=== PATIENT | female | born 1965 | race Hispanic/Latino ===

== ENCOUNTER 2022-06-10 17:18 | Observation (INO) | payer SELFPAY ==
[2022-06-10] MEDS ORDERED: FUROSEMIDE 40 MG/4 ML INJ IV ONE (19:26)
--- NOTE | 2022-06-10 19:54 | XRay Report ---
CHEST 1 VIEW INDICATION: Dyspnea. COMPARISON: None FINDINGS: SUPPORT DEVICES: None. HEART: Within normal limits. LUNGS/PLEURA: Moderate patchy right greater than left basilar airspace disease. No effusion. ADDITIONAL FINDINGS: None. IMPRESSION: 1. Lung findings as above. Signer Name: Kishore Nieves MD Signed: 06/10/2022 7:50 PM Workstation Name: [id number]
[2022-06-10 20:05] LABS: Hematocrit 36.3 % (30.3-42.9); Hemoglobin 12.9 gm/dl (10.1-14.3); Mean Corpuscular HGB Conc 35 % (30-34); Mean Corpuscular Volume 110 fl (79-97); Platelet Count 223 K/mm3 (140-440); Red Blood Count 3.31 M/mm3 (3.65-5.03); Red Cell Distribution Width 15.9 % (13.2-15.2)
[2022-06-10 20:32] LABS: Alanine Aminotransferase 40 units/L (7-56); Albumin 3.9 g/dL (3.9-5); Blood Urea Nitrogen 12 mg/dL (7-17); Calcium 8.5 mg/dL (8.4-10.2); Hemolysis Index 8
[2022-06-10 20:41] LABS: BUN/Creatinine Ratio 30
[2022-06-10 21:08] LABS: Basophils % (Manual) 0 % (0.0-1.8); Eosinophils % (Manual) 0 % (0.0-4.3); Platelet Estimate Consistent w Auto; Total Cells Counted 100
--- NOTE | 2022-06-10 22:54 | Cat Scan Report ---
CTA CHEST WITH CONTRAST INDICATION / CLINICAL INFORMATION: Chest pain shortness of breath 100ml of [id number]. TECHNIQUE: Axial CT images were obtained through the chest after injection of IV contrast. 3 plane TX P and/or 3D reconstructions were produced. All CT scans at this location are performed using CT dose reduction for ALARA by means of automated exposure control. COMPARISON: Chest x-ray 06/10/2022 FINDINGS: VASCULAR FINDINGS: PULMONARY ARTERY: Pulmonary artery is normal in size. Segmental and subsegmental branch vessels of th e upper and lower lobes of blurred by motion and were not well opacified. Excluding these segments, t here is no evidence of pulmonary artery embolus.. THORACIC AORTA: No significant abnormality. CORONARY ARTERY CALCIFICATION: Absent -- None. NONVASCULAR FINDINGS: LOWER NECK: Soft tissues and musculature of the lower neck demonstrate no significant abnormality. Th e thyroid demonstrates no significant abnormality. HEART: No significant abnormality. MEDIASTINUM / LOBITO: No significant abnormality. ESOPHAGUS: No significant abnormality. LYMPH NODES: No adenopathy within the axilla, mediastinum, or lobito. LUNGS: Lungs are moderately blurred by motion. No focal consolidation. PLEURA: No pleural effusion. No pneumothorax. THORACIC SOFT TISSUES: No significant abnormality of the chest wall or upper thoracic musculature. BONES: Bilateral remote rib fractures. No acute osseous findings. ADDITIONAL CHEST FINDINGS: None. UPPER ABDOMEN: No significant abnormality. IMPRESSION: 1. No CT evidence for pulmonary embolism. 2. No acute findings. Signer Name: Asim Dawson II, MD Signed: 06/10/2022 10:49 PM Workstation Name: [id number]
[2022-06-10] MEDS ORDERED: ALBUTEROL 2.5 MG/3 ML NEBU IH ONE (22:58)
[2022-06-10] MEDS ORDERED: methylPREDNISolone Sod Succinate 125 MG/2 ML INJ IV ONE (22:59)
[2022-06-10] MEDS ORDERED: MORPHINE 4 MG/1 ML INJ IV ONE (23:08)
--- NOTE | 2022-06-10 23:11 | Emergency Department Report ---
ED Shortness of Breath HPI - General Chief Complaint: Dyspnea/Respdistress Stated Complaint: BEV Time Seen by Provider: 06/10/22 18:49 Source: patient, EMS Mode of arrival: Stretcher Limitations: No Limitations - History of Present Illness Initial Comments: Patient is a 56-year-old female with history of COPD, CHF and PE presenting to ED with complaint of worsening shortness of breath over the past several days. States she was on home oxygen in the past and was able to be weaned off. She also reports being out of her Eliquis. - Related Data Allergies Allergy/AdvReac Type Severity Reaction Status Date / Time No Known Allergies Allergy Unverified 06/10/22 17:29 ED Review of Systems ROS: Stated complaint: BEV Other details as noted in HPI Constitutional: denies: chills, fever Respiratory: shortness of breath Cardiovascular: denies: chest pain, palpitations Gastrointestinal: denies: abdominal pain, nausea, diarrhea Musculoskeletal: back pain (Chronic) Skin: denies: rash, lesions Neurological: denies: headache, weakness, paresthesias Psychiatric: denies: anxiety, depression Hematological/Lymphatic: denies: easy bleeding, easy bruising ED Physical Exam - General Limitations: No Limitations General appearance: alert, in no apparent distress, obese - Head Head exam: Present: atraumatic, normocephalic - Neck Neck exam: Present: normal inspection - Respiratory Respiratory exam: Present: respiratory distress, wheezes, other (Intermittent coughing) - Cardiovascular Cardiovascular Exam: Present: regular rate, normal rhythm, normal heart sounds - GI/Abdominal GI/Abdominal exam: Present: soft. Absent: distended, tenderness - Rectal Rectal exam: Present: deferred - Neurological Exam Neurological exam: Present: alert, oriented X3 - Psychiatric Psychiatric exam: Present: normal affect, normal mood - Skin Skin exam: Present: warm, dry, intact, normal color ED Course Vital Signs 06/10/22 06/10/22 06/10/22 19:53 20:01 20:15 Pulse Rate 90 99 H 109 H Respiratory 25 H 21 32 H Rate Blood Pressure 159/89 159/89 O2 Sat by Pulse 96 95 94 Oximetry 06/10/22 06/10/22 06/10/22 20:30 20:46 21:00 Pulse Rate 102 H 108 H 89 Respiratory 19 27 H 26 H Rate Blood Pressure 159/89 159/89 O2 Sat by Pulse 98 97 Oximetry 06/10/22 21:16 Pulse Rate 88 Respiratory 23 Rate Blood Pressure 159/89 O2 Sat by Pulse 97 Oximetry ED Medical Decision Making - Lab Data Result diagrams: 06/10/22 19:49 06/10/22 19:49 - Medical Decision Making Chest x-ray shows bibasilar patchiness right greater than left. CTA chest negative for PE or acute process. Troponin undetectable. BNP 1267. Patient given IV Lasix along with IV Solu-Medrol and albuterol nebs. Suspect likely COPD exacerbation. ABG pending. Will admit to hospitalist for further management. Critical care attestation.: If time is entered above; I have spent that time in minutes in the direct care of this critically ill patient, excluding procedure time. ED Disposition Clinical Impression: COPD exacerbation Disposition: ADMITTED INPATIENT Is pt being admited?: Yes Condition: Stable Instructions: Chronic Obstructive Pulmonary Disease (ED)
[2022-06-11] MEDS ORDERED: ACETAMINOPHEN 325 MG TAB PO PRN (00:19)
[2022-06-11] MEDS ORDERED: MORPHINE 2 MG/1 ML INJ IV PRN (00:19)
[2022-06-11] MEDS ORDERED: MORPHINE 4 MG/1 ML INJ IV PRN (00:19)
[2022-06-11] MEDS ORDERED: ONDANSETRON 4 MG/2 ML INJ IV PRN (00:19)
[2022-06-11] MEDS ORDERED: MAGNESIUM HYDROXIDE (MOM) ORAL LIQD UDC PO PRN (00:19)
--- NOTE | 2022-06-11 00:53 | History and Physical Report ---
History of Present Illness Date of examination: 06/11/22 Date of admission: 06/11/22 00:20 Chief complaint: Shortness of breath History of present illness: 56-year-old female with known history of COPD, CHF and also history of pulmonary embolism presenting the emergency room today complaining of shortness of breath. Patient denies any chest pain. Patient has also been on oxygen as at home in the past. She denies any sick contacts and no recent travel. Denies any contact with anyone with COVID-19. Patient denies any fever or chills. No nausea vomiting and no abdominal pain. Upon arrival in the emergency room today patient was found to be wheezing and wa s started on nebulizing treatments. Work-up in the emergency room today, Finding was that of BNP of 1267. Chest x-ray shows moderate patchy right greater than left basilar airspace disease. Patient being admitted for acute dyspnea possibly secondary to COPD versus CHF exacerbation. Past History Past Medical History: COPD, heart failure, pulmonary embolism Past Surgical History: No surgical history Social history: smoking (Current daily smoker) Family history: no significant family history Medications and Allergies Allergies Allergy/AdvReac Type Severity Reaction Status Date / Time No Known Allergies Allergy Verified 06/11/22 00:26 Active Meds: Active Medications Acetaminophen (Acetaminophen 325 Mg Tab) 650 mg PO Q4H PRN PRN Reason: Pain MILD(1-3)/Fever >100.5/GUERRIER Albuterol/Ipratropium (Ipratropium/Albuterol Sulfate 3 Ml Ampul.Neb) 1 ampul IH Q6HRT [facility] Furosemide (Furosemide 40 Mg/4 Ml Inj) 40 mg IV BID@0600,1800 [facility] Magnesium Hydroxide (Magnesium Hydroxide (Mom) Oral Liqd Udc) 30 ml PO Q4H PRN PRN Reason: Constipation Methylprednisolone Sodium Succinate (Methylprednisolone Sod Succinate 40 Mg/1 Ml Inj) 40 mg IV Q8HR [facility] Morphine Sulfate (Morphine 2 Mg/1 Ml Inj) 2 mg IV Q4H PRN PRN Reason: Pain, Moderate (4-6) Morphine Sulfate (Morphine 4 Mg/1 Ml Inj) 4 mg IV Q4H PRN PRN Reason: Pain , Severe (7-10) Ondansetron HCl (Ondansetron 4 Mg/2 Ml Inj) 4 mg IV Q8H PRN PRN Reason: Nausea And Vomiting Sodium Chloride (Sodium Chloride 0.9% 10 Ml Flush Syringe) 10 ml IV BID KAE Sodium Chloride (Sodium Chloride 0.9% 10 Ml Flush Syringe) 10 ml IV PRN PRN PRN Reason: LINE FLUSH Review of Systems Constitutional: no fever, no chills Ears, nose, mouth and throat: no nasal congestion, no sore throat Cardiovascular: no chest pain, no palpitations Respiratory: shortness of breath, no cough Gastrointestinal: no abdominal pain, no nausea, no vomiting, no diarrhea Genitourinary Female: no pelvic pain, no flank pain, no dysuria Musculoskeletal: no neck pain, no low back pain Integumentary: no rash, no pruritis Neurological: no headaches, no confusion Psychiatric: no anxiety, no depression Endocrine: no polyphagia, no polydipsia, no polyuria, no nocturia Exam - Constitutional Vitals: Temp Pulse Resp BP Pulse Ox 90 20 140/80 97 06/11/22 00:30 06/11/22 00:30 06/11/22 00:30 06/11/22 00:30 General appearance: Present: no acute distress, well-nourished - EENT Eyes: Present: PERRL, EOM intact. Absent: scleral icterus ENT: hearing intact, clear oral mucosa, dentition normal - Neck Neck: Present: supple, normal ROM - Respiratory Respiratory effort: normal Respiratory: bilateral: wheezing - Cardiovascular Rhythm: regular Heart Sounds: Present: S1 & S2. Absent: gallop, systolic murmur, diastolic murmur, rub, click - Extremities Extremities: no ischemia, normal color, Full ROM Extremity abnormal: edema (1+ bilateral lower extremity edema) Peripheral Pulses: within normal limits - Abdominal General gastrointestinal: Present: soft, non-tender, non-distended, normal bowel sounds. Absent: mass - Integumentary Integumentary: Present: clear, warm, dry. Absent: rash - Musculoskeletal Musculoskeletal: strength equal bilaterally - Psychiatric Psychiatric: appropriate mood/affect, intact judgment & insight, memory intact, cooperative - Neurologic Neurologic: CNII-XII intact, no focal deficits, moves all extremities HEART Score - HEART Score Troponin: Troponin T < 0.010 ng/mL (0.00-0.029) 06/10/22 19:49 Results - Labs CBC & Chem 7: 06/10/22 19:49 06/10/22 19:49 Labs: Abnormal lab results 06/10/22 06/10/22 06/10/22 Range/Units 19:49 19:49 19:49 RBC 3.31 L (3.65-5.03) M/mm3 MCV 110 H (79-97) fl MCH 39 H (28-32) pg MCHC 35 H (30-34) % RDW 15.9 H (13.2-15.2) % Seg Neuts % (Manual) 97.0 H (40.0-70.0) % Lymphocytes % (Manual) 2.0 L (13.4-35.0) % Seg Neutrophils # Man 7.8 H (1.8-7.7) K/mm3 Lymphocytes # (Manual) 0.2 L (1.2-5.4) K/mm3 Potassium 3.5 L (3.6-5.0) mmol/L Creatinine 0.4 L (0.6-1.2) mg/dL Glucose 160 H (65-100) mg/dL AST 46 H (5-40) units/L NT-Pro-B Natriuret Pep 1267 H (0-900) pg/mL Assessment and Plan Assessment: 1. Acute dyspnea -possibly secondary to COPD exacerbation versus CHF 2. Tobacco abuse Plan: 1. Patient admitted and placed on nebulizing treatments and IV steroid. 2. Patient also placed on diuretics. We will monitor input and output and also monitor daily weight. 3. Patient was scheduled for echocardiogram. 4. Keep O2 saturation greater equal to 92%. 5. We will resume routine home medications. DVT prophylaxis: Subcutaneous heparin CODE STATUS: Full code
[2022-06-11] MEDS: IPRATROPIUM/ALBUTEROL SULFATE 3 ML AMPUL.NEB IH SCH ×3 (04:38→14:19)
[2022-06-11] MEDS ORDERED: FUROSEMIDE 40 MG/4 ML INJ IV SCH (06:00)
[2022-06-11] MEDS: methylPREDNISolone Sod Succinate 40 MG/1 ML INJ IV SCH ×2 (06:28→12:59)
--- NOTE | 2022-06-11 12:13 | Consultation ---
History of Present Illness Consult date: 06/11/22 Requesting physician: YAEL DA SILVA Consult reason: congestive heart failure History of present illness: Patient is a 56-year-old female visiting from [place] with a reported past medical history of COPD(previously on home O2 but has been weaned off she states) and PE who reports not currently on anticoagulation who presented to the ED with complaint of shortness of breath x2 days. She also reports cough and wheezing during this time. Patient states that she feels her COPD is acting up and came to the hospital due to her shortness of breath. At time of interview patient reports feeling significantly better. In the ED patient was found to have elevated BNP and CXR showed moderate patchy basilar airspace disease right greater than left. Patient denies chest pain, nausea, vomiting, diaphoresis, orthopnea. Patient is previously unknown to our practice. Cardiology is consulted for CHF Past History Past Medical History: COPD, hypertension, pulmonary embolism Past Surgical History: cholecystectomy, tonsillectomy Social history: smoking (Current daily smoker) Family history: no significant family history Medications and Allergies Allergies Allergy/AdvReac Type Severity Reaction Status Date / Time No Known Allergies Allergy Verified 06/11/22 10:28 Home Medications Medication Instructions Recorded Confirmed Last Taken Type ALBUTEROL NEB's [Proventil 0.083% 2.5 mg IH Q4H PRN 06/11/22 06/11/22 Unknown History NEBS] Albuterol Mdi (or & Nicu Only) 2 puff IH QID PRN 06/11/22 06/11/22 Unknown History [ProAir HFA Inhaler] Apixaban [Eliquis] 5 mg PO Q12H 06/11/22 06/11/22 Unknown History oxyCODONE [roxiCODONE] 10 mg PO Q6HR PRN 06/11/22 06/11/22 Unknown History Active Meds: Active Medications Acetaminophen (Acetaminophen 325 Mg Tab) 650 mg PO Q4H PRN PRN Reason: Pain MILD(1-3)/Fever >100.5/GUERRIER Albuterol/Ipratropium (Ipratropium/Albuterol Sulfate 3 Ml Ampul.Neb) 1 ampul IH Q6HRT [facility] Last Admin: 06/11/22 09:15 Dose: 1 ampul Furosemide (Furosemide 40 Mg/4 Ml Inj) 40 mg IV BID@0600,1800 [facility] Last Admin: 06/11/22 06:28 Dose: 40 mg Magnesium Hydroxide (Magnesium Hydroxide (Mom) Oral Liqd Udc) 30 ml PO Q4H PRN PRN Reason: Constipation Methylprednisolone Sodium Succinate (Methylprednisolone Sod Succinate 40 Mg/1 Ml Inj) 40 mg IV Q8HR [facility] Last Admin: 06/11/22 06:28 Dose: 40 mg Morphine Sulfate (Morphine 2 Mg/1 Ml Inj) 2 mg IV Q4H PRN PRN Reason: Pain, Moderate (4-6) Last Admin: 06/11/22 06:28 Dose: 2 mg Morphine Sulfate (Morphine 4 Mg/1 Ml Inj) 4 mg IV Q4H PRN PRN Reason: Pain , Severe (7-10) Ondansetron HCl (Ondansetron 4 Mg/2 Ml Inj) 4 mg IV Q8H PRN PRN Reason: Nausea And Vomiting Sodium Chloride (Sodium Chloride 0.9% 10 Ml Flush Syringe) 10 ml IV BID [facility] Last Admin: 06/11/22 09:50 Dose: 10 ml Sodium Chloride (Sodium Chloride 0.9% 10 Ml Flush Syringe) 10 ml IV PRN PRN PRN Reason: LINE FLUSH Review of Systems Constitutional: no weight loss, no weight gain, no fever, no chills Ears, nose, mouth and throat: no sinus pressure, no sinus pain Cardiovascular: shortness of breath, dyspnea on exertion, no chest pain Respiratory: cough, shortness of breath, dyspnea on exertion Gastrointestinal: no abdominal pain, no nausea, no vomiting Musculoskeletal: no neck stiffness, no neck pain Integumentary: redness (chronic), no rash, no pruritis Neurological: no head injury, no transient paralysis Psychiatric: no anxiety, no memory loss Endocrine: no cold intolerance, no heat intolerance Physical Examination Vital Signs Pulse Resp Pulse Ox 90 25 H 96 06/10/22 19:53 06/10/22 19:53 06/10/22 19:53 General appearance: no acute distress HEENT: Positive: PERRL Neck: Positive: trachea midline Cardiac: Positive: Reg Rate and Rhythm Lungs: Positive: Decreased Breath Sounds, Wheezes Neuro: Positive: Grossly Intact Abdomen: Positive: Soft Skin: Positive: Other (chronic changes). Negative: Rash, Suspicious Lesions, Ulceration Extremities: Present: upper extr. pulses. Absent: edema Results 06/10/22 19:49 06/10/22 19:49 Cardiac Enzymes 06/10/22 Range/Units 19:49 AST 46 H (5-40) units/L CBC 06/10/22 Range/Units 19:49 WBC 8.0 (4.5-11.0) K/mm3 RBC 3.31 L (3.65-5.03) M/mm3 Hgb 12.9 (10.1-14.3) gm/dl Hct 36.3 (30.3-42.9) % Plt Count 223 (140-440) K/mm3 Comprehensive Metabolic Panel 06/10/22 Range/Units 19:49 Sodium 140 (137-145) mmol/L Potassium 3.5 L (3.6-5.0) mmol/L Chloride 100.0 (98-107) mmol/L Carbon Dioxide 30 (22-30) mmol/L BUN 12 (7-17) mg/dL Creatinine 0.4 L (0.6-1.2) mg/dL Glucose 160 H (65-100) mg/dL Calcium 8.5 (8.4-10.2) mg/dL AST 46 H (5-40) units/L ALT 40 (7-56) units/L Alkaline Phosphatase 120 (35-129) units/L Total Protein 6.5 (6.3-8.2) g/dL Albumin 3.9 (3.9-5) g/dL - Imaging and Cardiology Echo: pending Assessment and Plan Patient is a 56-year-old female visiting from [place] with a reported past medical history of COPD(previously on home O2 but has been weaned off she states) and PE who reports not currently on anticoagulation who presented to the ED with complaint of shortness of breath x2 days Acute exacerbation of COPD Acute HFpEF Right-sided heart failure Hypertension Obesity Plan: No EKG in chart EKG pending. Troponins negative x1. Patient denies any complaints of chest pain Preliminary echo reports showed normal echo with no valvular abnormalities. See report for full details BNP noted to be elevated however patient appears euvolemic on exam. Furthermore patient is resting in bed no longer on O2 in no acute distress Suspect patient's symptoms a result of acute exacerbation of COPD Cardiac status appears otherwise stable for discharge Patient seen in conjunction with Dr. Cartwright who agrees with plan of care - Patient Problems (1) (HFpEF) heart failure with preserved ejection fraction Current Visit: Yes Status: Acute (2) Right-sided heart failure Current Visit: Yes Status: Acute (3) COPD exacerbation Current Visit: Yes Status: Acute
[2022-06-11] MEDS ORDERED: NON-FORMULARY EACH (Apixaban 5 MG Tablet) PO SCH (12:15)
[2022-06-11] MEDS ORDERED: oxyCODONE 5 MG TAB PO PRN (12:45)
[2022-06-11 12:56] VITALS: BP 133/82
[2022-06-11] MEDS ORDERED: ALBUTEROL 2.5 MG/3 ML NEBU IH PRN (13:00)
[2022-06-11] MEDS ORDERED: levoFLOXacin 750 MG TAB PO SCH (13:00)
--- NOTE | 2022-06-11 14:53 | Discharge Summary ---
Providers - Providers Date of Admission: 06/11/22 00:20 Date of discharge: 06/11/22 Attending physician: ASHLYN GUAN 06/11/22 00:19 Consult to Physician [CONS] Routine Comment: Consulting Provider: JHON LOZOYA Physician Instructions: Reason For Exam: CHF- Exac Primary care physician: TIERNEY HDZ Hospitalization Condition: Stable Hospital course: Patient is a 56-year-old female visiting from [place] with a reported past medical history of COPD(previously on home O2 but has been weaned off she states) and PE who reports not currently on anticoagulation who presented to the ED with complaint of shortness of breath x2 days Disposition: 30 STILL A PATIENT Final Discharge Diagnosis (Prints w/discharge instructions): Acute exacerbation of COPD. Acute HFpEF. Right-sided heart failure. Hypertension. Obesity Time spent for discharge: 34 minutes Core Measure Documentation - Palliative Care Palliative Care/ Comfort Measures: Not Applicable - Core Measures Any of the following diagnoses?: none Exam - Physical Exam Narrative exam: GENERAL: well-developed morbidly obese white female lying on bed appeared to be in no discomfort. HEENT: Normocephalic. Atraumatic. No conjunctival congestion or icterus. Patient has moist mucous membranes. NECK: Supple. Trachea midline. CHEST/LUNGS: Few wheezes auscultated bilaterally, breathing nonlabored. No crackles or rhonchi. HEART/CARDIOVASCULAR: Regular in rate and rhythm. S1 and S2 positive. ABDOMEN: Abdomen is soft, nontender. Patient has normal bowel sounds. SKIN: There is no rash. Warm and dry. NEURO: No focal motor deficit. Follows command. MUSCULOSKELETAL: No joint effusion or tenderness. EXTRIMITY: No edema, no cyanosis or clubbing. PSYCH: Cooperative. - Constitutional Vitals: Temp Pulse Resp BP Pulse Ox 98.3 F 89 18 133/82 92 06/11/22 12:48 06/11/22 14:21 06/11/22 14:21 06/11/22 12:48 06/11/22 12:48 Plan Activity: advance as tolerated Weight Bearing Status: Non-Weight Bearing Diet: low fat, low salt (Evaluation and treatment of this patient was during the time of the national and state emergency arising from COVID19 coronavirus pandemic. Treatment and procedures performed meet the current and available best practice and guidelines for patient during the COVID pandemic.) Follow up with: TIERNEY HDZ MD [Primary Care Provider] - 7 Days Prescriptions: predniSONE 10 mg PO .TAPER #21 tab oxyCODONE [roxiCODONE] 10 mg PO Q6HR PRN #10 PRN Reason: Pain Azithromycin [Zithromax Z-MIRLANDE] 0 mg PO DAILY #6 tab
[2022-06-11] MEDS ORDERED: APIXABAN 5 MG TAB PO SCH (22:00)
--- NOTE | 2022-06-12 09:44 | Electrocardiograph Report ---
[facility] Test Date: 2022-06-10 Test Time: 20:10:52 Pat Name: NIDHI NGUYỄN Department: Room: A464 1 Gender: F Search Marketing Analyst: JENNIFER : 1965 Requested By: SOL RAPP Order Number: [id number] Reading MD: Shan Cartwright Measurements Intervals [place] Rate: 88 P: 10 OK: 136 QRS: 13 QRSD: 84 T: 59 QT: 397 QTc: 481 Interpretive Statements Sinus rhythm No previous ECG available for comparison Electronically Signed On 06-12-2022 9:43:18 EDT by Shan Cartwright
== END 2022-06-11 17:03 | disposition home or self-care (01) ==
LOC: ED 17:18 → INTOOBSV 06-11 00:20 → 4A 06-11 00:20
PROVIDERS: ADMIT Internal Medicine Geriatric Medicine; ATTEND Internal Medicine
DX: J44.1 Chronic obstructive pulmonary disease with (acute) exacerbation (principal); I11.0 Hypertensive heart disease with heart failure; I50.30 Unspecified diastolic (congestive) heart failure; F17.200 Nicotine dependence, unspecified, uncomplicated; R06.00 Dyspnea, unspecified; E66.9 Obesity, unspecified; Z86.711 Personal history of pulmonary embolism; Z90.49 Acquired absence of other specified parts of digestive tract; Z79.899 Other long term (current) drug therapy; Z98.890 Other specified postprocedural states; Z68.45 Body mass index [BMI] 70 or greater, adult
CPT/HCPCS: 36415; 71045; 71275; 80053; 83735; 83880; 84484; 85025; 93005; 94640; 94644; 94760; 96365; 96375; 96376; 99285; C8929; G0378; J1940; J1956; J2270; J2920; J2930; Q9967; 85007; 93306; 96374